=== PATIENT | male | born 1980 | race Caucasian/White ===

== ENCOUNTER 2021-06-22 19:07 | Emergency (ER) | payer OTHER, SELFPAY ==
--- NOTE | ~2021-06-22 | XR_ITS ---
[XR ribs RT 2V w CXR 2V ] INDICATION: Right lateral rib pain after fall TECHNIQUE: Frontal projection of the upper right ribs, frontal projection of the lower right ribs, ob lique projection of all the right ribs, frontal inspiratory chest x-ray for interpretation. FINDINGS: There is a right fourth rib fracture, possibly acute. There are healed right fifth and sixt h rib fractures posteriorly. There are no soft tissue abnormality seen. The lungs are clear. IMPRESSION: 1: Right fourth rib fracture, possibly acute. 2: Healed right fifth and sixth rib fractures. Reviewed, dictated and finalized at location A. FILL GAS TECHNICIAN
[2021-06-22 19:34] VITALS: BP 138/81; PULSE 72; RESP 20; TEMP 37.6; O2SAT 99
--- NOTE | 2021-06-22 20:04 | ED.FALL ---
HPI - Fall General Chief Complaint: Fall Stated Complaint: Fall Source: patient and RN notes reviewed Limitations: no limitations History of Present Illness HPI Narrative: The patient, a non-smoker/nondrinker, presents with right rib pain. Patient states he slipped from about a standing position while at [employer] striking his ribs on concrete ground, a couple hours ago. He complains of mild to moderate pain is worse with motion or deep breath , better at rest, located posterior right ribs. No fever, cough, shortness of breath, other injury, presyncope. Related Data Home Medications Medication Instructions Recorded Confirmed No Home Medications 06/22/21 06/22/21 Allergies Allergy/AdvReac Type Severity Reaction Status Date / Time No Known Allergies Allergy Verified 06/22/21 19:47 Review of Systems Review of Systems: General/Constitutional: No weight loss,fever Eyes: N0: Redness,discharge Ears/Nose/Throat: No: Epistaxis,ear discharge Respiratory: Denies: Hemoptysis Gastrointestinal: No Vomiting, Bleeding-rectal Skin: No Lumps, eruption Neurologic: No Focal Weakness,Sz Hematologic: Denies: Petechiae/Purpura Psychiatric: No: Suicida ideationl All Other Systems: Reviewed and Negative PMFSH Comments At time of signature, agree with nursing past medical, surgical, social and family history. There is no relevant family history pertinent to the presenting complaint Exam Narrative: General Appearance: Well appearing, mild pain/distress EYE: PERRLA, Conjunctiva clear Ears: External ear normal Nose: Normal nose Mouth/Throat: Normal appearing, Normal lips Neck: Supple Respiratory: Airway patent, No respiratory distress, tender right posterior ribs T3-5 Cardiovascular: RRR Abdomen: Soft, Non-tender, No massess, No organomegaly (no rebound/ surgical signs), Hyperactive bowel sounds Musculoskeletal: Full ROM Skin: Warm, Dry Neurological: A&O x3, CN II-X intact Psychiatric: Normal mood, Normal affect Course Course Emergency Course: Films visualized, interpreted by radiologist, agree, ABnormal see report Vital Signs Vital signs: Vital Signs Temperature 99.6 F 06/22/21 19:34 Pulse Rate 72 06/22/21 19:34 Respiratory Rate 20 06/22/21 19:34 Blood Pressure 138/81 06/22/21 19:34 Pulse Oximetry 99 06/22/21 19:34 Temperature 99.6 F 06/22/21 19:34 Pulse Rate 72 06/22/21 19:34 Respiratory Rate 20 06/22/21 19:34 Blood Pressure 138/81 06/22/21 19:34 Pulse Oximetry 99 06/22/21 19:34 Discharge Plan Discharge Clinical Impression: Right-sided chest pain Closed fracture of rib of right side Qualifiers: Encounter type: initial encounter Rib fracture type: single rib Qualified Code(s): S22.31XA - Fracture of one rib, right side, initial encounter for closed fracture Patient Disposition: Home, Self-Care Condition: Stable Instructions: Rib Fracture (ED), Hematoma (ED) Prescriptions: New acetaminophen-codeine 300-30 mg tablet 1 - 1.5 tablet PO HS PRN (Reason: pain) Qty: 10 RF: 0 tramadol 50 mg tablet 50 - 75 mg PO BID PRN (Reason: pain) Qty: 20 RF: 0 No Action No Home Medications RF: 0 Follow-up/Referrals: UNKNOWN,DOCTOR [Primary Care Provider] -
== END 2021-06-22 20:24 | disposition home or self-care (01) ==
PROVIDERS: Emergency Provider Emergency Medicine
DX: S22.31XA Fracture of one rib, right side, initial encounter for closed fracture (principal); W01.0XXA Fall on same level from slipping, tripping and stumbling without subsequent striking against object, initial encounter
CPT/HCPCS: 71046; 71100; 99203; G0463

== ENCOUNTER 2021-10-08 13:28 | Emergency (ER) | payer OTHER, SELFPAY ==
--- NOTE | 2021-10-08 13:36 | ED.NAVMDI ---
HPI - Nausea/Vomiting/Diarrhea General Chief complaint: Nausea/Vomiting/Diarrhea Stated complaint: vomiting Time Seen by Provider: 10/08/21 13:50 Source: patient Mode of arrival: ambulatory Limitations: no limitations History of Present Illness HPI Narrative: Mr. Martinez is a 41-year-old male patient presenting to the clinic today with complaints of vomiting x2 days. He reports he thinks it may be something that he is eaten, possibly some chicken. When asked about alcohol use he stated that he drank the night before approximately 1 pint of vodka. States that drinking alcohol has been a common occurrence for him however he is trying to decrease his alcohol intake and has gotten better with this however he had relapsed and drank the pint of vodka. Patient thinks that his vomiting is due to to something he ate. Reports he has not eaten or drink anything this morning because of the fear of vomiting. Had to call in to work for today. Denies any bowel changes or abdominal pain. Just reports that he is very hungry this morning. MD elicited complaint: nausea and vomiting Related Data Allergies Allergy/AdvReac Type Severity Reaction Status Date / Time No Known Allergies Allergy Verified 10/08/21 13:57 Review of Systems Review of Systems: Pertinent positives per HPI. Patient denies any fever, chills, rash, headache, visual changes, dizziness, cough, runny nose, sore throat, shortness of breath, chest pain, palpitations, diarrhea, constipation, abdominal pain, or any urinary issues. PMFSH Comments At the time of my signature, I reviewed and agree with the nursing past medical, surgical, social, and family history. There is no relevant family history pertinent to the patient complaint. Exam Narrative: General: Well-developed, well nourished, in no apparent distress. Cardio: Regular rate and rhythm, s1 and s2 normal, no murmur appreciated. Mouth: Oropharynx without lesions or masses, mucous membranes dry Resp: Clear to auscultation bilaterally, no rhonchi, rales, wheezing or rubs. Abdomen: Soft, pliable, bowel sounds present in all quadrants, non-tender to palpation, no organomegly, no CVAT tenderness. Course Course Emergency Course: Portions of this record may have been created with voice recognition software. Level of Care: Express Care Visit Vital Signs Vital signs: Vital Signs Temperature 36.4 C L 10/08/21 13:42 Pulse Rate 93 10/08/21 13:42 Respiratory Rate 16 10/08/21 13:42 Blood Pressure 148/96 H 10/08/21 13:42 Pulse Oximetry 98 10/08/21 13:42 Temperature 36.4 C L 10/08/21 13:42 Pulse Rate 93 10/08/21 13:42 Respiratory Rate 16 10/08/21 13:42 Blood Pressure 148/96 H 10/08/21 13:42 Pulse Oximetry 98 10/08/21 13:42 Vital signs reviewed MDM - Nausea/Vomiting/Diarrhea MDM Narrative Medical decision making narrative: UA obtained from patient and it was positive for 1+ ketone and specific gravity of greater than 1.030. Denies any abdominal pain. Discussed oral rehydration versus IV rehydration with patient and patient would like to receive IV fluids today. 1 L of lactated Ringer's IV fluids given in the clinic, I will send in a prescription of Zofran into the pharmacy for the patient. Counseled about alcohol use. We will have patient follow-up with PCP if symptoms persist. Patient reports feeling better after half a bag of lactated Ringer's infused. Patient decided that he no longer wants to stay in the clinic and would like to be discharged after receiving half a bag of fluids. INT removed intact and patient discharged with instructions Lab Data Labs: Urine Glucose Negative Reference Range: Negative Urine Bilirubin Negative Reference Range: Negative Urine Ketone 1+ Reference Range: Negati
[2021-10-08 13:42] VITALS: BP 148/96; PULSE 93; RESP 16; TEMP 36.4; O2SAT 98
[2021-10-08] MEDS: LACTATED RINGERS 1,000 ML 999 ML IV CONT (14:50)
--- NOTE | 2021-10-08 15:21 | PC.NURSE ---
Repositioned pt arm for IV to drip. Will continue to monitor. Call light in reach, no further complaints at this time.
--- NOTE | 2021-10-08 16:43 | PC.NURSE ---
1553- Pt playing on phone. Dressing dry, intact, and occlusive. IV patent, fluids dripping slowly, repositioned pt arm to drip faster . Will continue to monitor.
--- NOTE | 2021-10-08 16:45 | PC.NURSE ---
1625- Pt lying on side. Lights dimmed and pillow given for comfort. Dressing dry, intact and occlusive, iv patent. Pt denies pain. Pressure applied to IV bag. Will continue to monitor.
== END 2021-10-08 17:06 | disposition home or self-care (01) ==
PROVIDERS: Emergency Provider Nurse Practitioner Family
DX: R11.2 Nausea with vomiting, unspecified (principal)
CPT/HCPCS: 81003; 96360; 96361; 99213; G0463; J7120

== ENCOUNTER 2024-09-22 06:19 | Emergency (ER) | payer OTHER, SELFPAY ==
[2024-09-22] VITALS (8 sets, daily range): BP systolic 126–165; BP diastolic 77–103; PULSE 82–113; RESP 15–22; TEMP 36.8–36.9; O2SAT 97–100
--- NOTE | ~2024-09-22 | US_ITS ---
EXAMINATION: US right upper quadrant DATE: 09/22/2024 11:26 INDICATION: Nausea and vomiting TECHNIQUE: Multiple grayscale and Doppler ultrasound images of the abdomen were obtained. COMPARISON: None FINDINGS: The pancreatic head and body are normal in appearance. The pancreatic tail is not visualized. The vi sualized proximal inferior vena cava is normal. Liver has normal contour, with a smooth surface. Ther e is increased parenchymal echogenicity and coarsened echotexture consistent with diffuse hepatic cookie atosis. No liver lesion identified. No intrahepatic biliary duct dilation suspected. Portal venous f low was seen in the hepatopetal, normal direction and has normal Doppler waveform. The gallbladder is normal in appearance. There is no cholelithiasis. The common bile duct measures 4 mm, which is norm al. Sonographic Strong sign was reported as negative by the food safety technician. Visualized right kidney demo nstrates normal contour and echogenicity with no hydronephrosis. IMPRESSION: 1. Diffuse hepatic steatosis. Otherwise unremarkable right upper quadrant ultrasound. Reviewed, dictated and finalized at location B. [facility] IMPRESSION: 1. Diffuse hepatic steatosis. Otherwise unremarkable right upper quadrant ultra sound.
--- OUTSIDE RECORDS SUMMARY | 2024-09-22 06:21 | XMS_ITS | Referral Summary ---
Author Organization [facility] Address [address] [place] [address] Care Team Providers Care Coordinator Skill Training Program Name Role Phone Kenneth Lr Primary Care Provider Source Comments [facility],non-owned Affiliates and Associated Physician Practices is amultiple site organization consisting of ambulatory clinics and hospital sitesin [place], [place], [place] and [place]. This disclosure is being madepursuant to the Care Everywhere program and may not contain all information available regarding this patient. Last updated 18.[facility] Allergies No known active allergies Medications * Be aware that medications may not be up to date on this document. Alwaysverify current medications with the patient. Medication Sig Dispensed Refills Start Date End Date Status ondansetron, disintegrating, (Zofran ODT) 4 MG tabletIndications:Na usea and Vomiting Take 1 (one) tablet by mouth every 6 hours as needed for Nausea/Vomiting Allow tablet to dissolve on the tongue Reasons: Nausea and Vomiting 20 tablet 10/19/2023 Active pantoprazole EC (Protonix) 40 MG tablet Take 1 (one) tablet by mouth once daily 30 tablet 1 10/19/2023 Active Active Problems Problem Noted Date Diagnosed Date Abdominal pain, generalized 10/18/2023 Metabolic acidosis 10/18/2023 Alcohol use 10/18/2023 Immunizations Name Administration Dates Next Due TDAP (7yrs+) 05/19/2022 Social History Tobacco Use Types Packs/Day Years Used Date Smoking Tobacco: Never Smokeless Tobacco: Never Tobacco Cessation:Counseling Given: Not Answered Alcohol Use Standard Drinks/Week Comments Never 0 (1 standard drink = 0.6 oz pur e alcohol) Sex and Gender Information Value Date Recorded Sex Assigned at Male 05/19/2022 4:43 AM CDT Gender Identity Male 05/19/2022 4:43 AM CDT Sexual Orientation Not on file Last Filed Vital Signs Vital Sign Reading Time Taken Comments Blood Pressure 147/86 10/19/2023 11:47 AM CDT Pulse 78 10/19/2023 11:47 AM CDT Temperature 36.7 C (98 F) 10/19/2023 11:47 AM CDT Respiratory Rate 18 10/19/2023 11:47 AM CDT Oxygen Saturation 100% 10/19/2023 11:47 AM CDT Inhaled Oxygen Concentration - - Weight 79.4 kg (175 lb) 10/19/2023 6:40 AM CDT Height 182.9 cm (6') 10/19/2023 6:40 AM CDT Body Mass Index 23.73 10/19/2023 6:40 AM CDT Plan of Treatment Not on file Advance Directives * Full Code (Latest Code Status on File) Date Activated Date Inactivated Comments 10/18/2023 10:51 PM 10/19/2023 4:25 PM Care Teams Coordinator Skill Training Program Relationship Specialty Start Date End Date Kenneth Lr DO [address] [place] [id number] PCP - General Emergency Medicine 12/04/22
--- OUTSIDE RECORDS SUMMARY | 2024-09-22 06:21 | XMS_ITS | Clinical Summary ---
Author Organization [facility] Address [address] [place] [address] Care Team Providers Care Cone [facility] Name Role Phone Referral, Self Primary Care Provider Gold John MD Unavailable [phone] Allergies No known active allergies Medications buPROPion XL (WELLBUTRIN XL) 150 mg 24 hr tablet Take 1 tablet (150 mg total) by mouth every morning 90 tablet 4 07/11/2022 Active amitriptyline (ELAVIL) 25 mg tablet Take 1 tablet (25 mg total) by mouth nightly 90 tablet 4 08/29/2022 Active Hospital, Clinic, or Other Facility Administered Medication Ordered Dose Route Frequency Start Date End Date Status naltrexone microspheres (VIVITROL) intramuscular injection 380 mgIndications:Alcohol withdrawal syndrome with complication (HCC) 380 mg IM Every 30 days 08/29/2022 Act ammy Active Problems Problem Noted Date Diagnosed Date Attention deficit hyperactiv ity disorder (ADHD), predominantly inattentive type 09/23/2022 Assessment & Plan (09/23/2022 4:23 PM TRAVERSE ROD ASSEMBLER): Stable, not well controlled; diagnosed in childhood, but never treated Will continue to monitor and discuss medical treatments available as patient becomes more stable Start bupropion 150 mg daily PTSD (post-traumatic stress disorder) 09/03/2022 Assessment & Plan (09/23/2022 4:22 PM TRAVERSE ROD ASSEMBLER): Continues to have significant anxiety; will continue to monitor closely, continue Librium p.r.n.; adjust to other medication has available Assessment & Plan (09/03/2022 2:27 PM TRAVERSE ROD ASSEMBLER): Continue bupropion 150 mg daily Will start amitriptyline 25 mg nightly to help with insomnia Alcohol withdrawal syndrome with complication Assessment & Plan (09/23/2022 4:22 PM TRAVERSE ROD ASSEMBLER): Stable, well controlled; improving, completed medical stabilization, received Vivitrol; 15 Fredrick's last drink Taking Librium at night which helps with overall anxiety Will continue Librium for now,; look forward towards ways to decrease medication needs given side effects Assessment & Plan (09/03/2022 2:27 PM TRAVERSE ROD ASSEMBLER): Generally improving, 2 episodes of drinking since last visit; only 1 was large binge Doing well with current medication, improves cravings, as well as decreases modify alcohol during binges Continue Vivitrol injection monthly Assessment & Plan (06/29/2022 10:50 PM TRAVERSE ROD ASSEMBLER): Started on CIWA protocol with Librium. Continue folate and thiamine supplementation Replete electrolytes as needed. Seizure precautions. Fall precautions. Regular diet. Symptomatic treatment for withdrawal symptoms. Supportive care. Warm hand of team following. Anemia 06/29/2022 Assessment & Plan (06/29/2022 10:49 PM TRAVERSE ROD ASSEMBLER): Suspect secondary to alcohol abuse. 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 Monitor. Bleeding precautions. Finger injury, initial encounter 06/04/2021 Immunizations Immunization Administration Dates Next Due Tdap 05/19/2022,02/22/2020 Social History Tobacco Use Types Packs/Day Years Used Date Smoking Tobacco: Never Tobacco Cessation:Counseling Given: Not Answered AUDIT-C Answer Date Recorded Q1: How often do you have a drink containing alc ohol? Never 08/29/2022 Average Number of Drinks Not on file 023 Frequency of Binge Drinking Not on file 08/2022 PHQ-2 Answer Date Recorded PHQ-2 Total Score (If total score is 3 or more points, staff should administer the PHQ-9) 0 08/29/2022 Personal Safety Answer Date Recorded Getting School Help Needed Not on file 08/04 Sex and Gender Information Value Date Recorded Sex Assigned at Not on file Legal Sex Male 9:51 AM CDT Gender Identity Not on file Sexual Orientation Not on file Obstetrics History Last Filed Vital Signs Vital Sign Reading Time Taken Comments Blood Pressure 103/64 08/29/2022 11:36 AM TRAVERSE ROD ASSEMBLER Pulse 77 08/29/2022 11:36 AM TRAVERSE ROD ASSEMBLER Temperature 36.5 C (97.7 F) 08/29/2022 11:36 AM TRAVERSE ROD ASSEMBLER Respiratory Rate 16 08/29/2022 11:36 AM TRAVERSE ROD ASSEMBLER Oxygen Saturation 99% 08/29/2022 11:36 AM TRAVERSE ROD ASSEMBLER Inhaled Oxygen Concentration - - Weight 85.3 kg (188 lb) 08/29/2022 11:36 AM TRAVERSE ROD ASSEMBLER Height 182.9 cm (6') 08/29/2022 11:36 AM TRAVERSE ROD ASSEMBLER Body Mass Index 25.5 08/29/2022 11:36 AM TRAVERSE ROD ASSEMBLER Plan of Treatment Health Maintenance Due Date Last Done Comments Hepatitis C Screening 1980 Varicella Vaccines (1 of 2 - 13+ 2-dose series) 1993 Hepatitis B Screening 1998 Regular Well Visit/Exam 18-64 1998 Depression Screening 08/29/2023 08/29/2022 Covid-19 Vaccine (3 - 2023-2 5 season) 2024 08/11/2021, 07/18/2021 Influenza Vaccine (#1) 2024 DTaP/Tdap/Td Vaccine (3 - Td or Tdap) 05/19/2032 05/19/2022, 02/22/2020 HPV Vaccines Aged Out No longer eligi ble based on patient's age to complete this topic Pneumococcal vaccine <65 Aged Out No longer eligible based on patient's age to complete this topic Insurance [facility] Advance Directives For more information, please contact: [phone] * Full Code (Latest Code Status on File) Date Activated Date Inactivated Comments 06/29/2022 2:07 PM 07/02/2022 2:08 PM Care Teams Cone Winder Relationship Specialty Start Date End Date Referral, Self PCP - General 05/01/21 Gold Winston MD Consulting Physician Family Medicine 07/01/22
--- OUTSIDE RECORDS SUMMARY | 2024-09-22 06:21 | XMS_ITS | Clinical Summary ---
Author Organization [facility] ??? Address [address] [place] [address] Care Team Providers Care Key Person Name Role Phone Kenneth Lr Primary Care Provider Source Comments [facility] ???,non-owned Affiliates and Associated Physician Practices is amultiple site organization consisting of ambulatory clinics and hospital sitesin [place], [place], [place] and [place]. This disclosure is being madepursuant to the Care Everywhere program and may not contain all information available regarding this patient. Last updated 18.[facility] ??? Allergies No known active allergies Medications * [...] 10/19/2023 6:40 AM CDT Plan of Treatment Health Maintenance Due Date Last Done Comments LIPID TESTING 1980 HIV SCREENING 1995 HEPATITIS C SCREENING 06/08/1998 HEPATITIS B VACCINE (1 of 3 - 19+ 3-dose series) 1999 COVID-19 VACCINE (2023-2 5 season) 2024 INFLUENZA VACCINE (#1) 2024 DEPRESSION SCREENING 07/28/2024 ZOSTER VACCINE (1 of 2) 2030 DTAP/TDAP/TD VACCINES (2 - T d or Tdap) 05/19/2032 05/19/2022 HIB VACCINE Aged Out No longer eligi ble based on patient's age to complete this topic HPV VACCINE Aged Out No longer eligi ble based on patient's age to complete this topic MENINGOCOCCAL (Group B) VACCINE Aged Out No longer eligible based on patient's age to complete this topic MENINGOCOCCAL VACCINE Aged Out No timo tima eligible based on patient's age to complete this topic PNEUMOCOCCAL VACCINE Aged Out No long er eligible based on patient's age to complete this topic Advance Directives * Full Code (Latest Code Status on File) Date Activated Date Inactivated Comments 10/18/2023 10:51 PM 10/19/2023 4:25 PM Care Teams Key Person Relationship Specialty Start Date End Date Kenneth Lr DO [address] [place] [id number] PCP - General Emergency Medicine 12/04/22
--- OUTSIDE RECORDS SUMMARY | 2024-09-22 06:21 | XMS_ITS | Patient Health Summary ---
Author Organization [facility] Address [address] [address] Care Team Providers Care Rocket Assembly Operator Name Role Phone Kenneth Lr DO Primary Care Provider Note from [facility],non-owned Affiliates and Associated Physician Practices is amultiple site organization consisting of ambulatory clinics and hospital sitesin [place], [place], [place] and [place]. This disclosure is being madepursuant to the Care Everywhere program and may not contain all information available regarding this patient. Last updated 18.[facility] Allergies No known active allergies Medications * Be aware that medications may not be up to date on this document. Alwaysverify current medications with the patient. * ondansetron, disintegrating, (Zofran ODT) 4 MG tablet(Started 10/19/2023) Take 1 (one) tablet by mouth every 6 hours as needed for Nausea/Vomiting Allow tablet to dissolve on the tongue Reasons: Nausea and Vomiting * pantoprazole EC (Protonix) 40 MG tablet(Started 10/19/2023) Take 1 (one) tablet by mouth once daily 1 refill by 10/18/2024 Active Problems Problem Noted Date Diagnosed Date Abdominal pain, generalized 10/18/2023 Metabolic acidosis 10/18/2023 Alcohol use 10/18/2023 Immunizations * TDAP (7yrs+)(Given 05/19/2022) Social History Tobacco Use Types Packs/Day Years [...] Mass Index 23.73 10/19/2023 6:40 AM CDT Procedures * CARDIAC EKG ORDER(Performed 10/23/2023) * CARDIAC EKG ORDER(Performed 10/20/2023) * HELICOBACTER PYLORI ANTIGEN FECES(Performed 10/19/2023) Performed for Abdominal pain, generalized * MAGNESIUM BLOOD(Performed 10/19/2023) Performed for Starvation ketoacidosis * BASIC METABOLIC PANEL (CALCIUM TOTAL)(Performed 10/19/2023) Performed for Starvation ketoacidosis * PHOSPHORUS BLOOD(Performed 10/19/2023) Performed for Starvation ketoacidosis * GLUCOSE - POINT OF CARE(Performed 10/19/2023) * GLUCOSE - POINT OF CARE(Performed 10/19/2023) * MAGNESIUM BLOOD(Performed 10/19/2023) Performed for Starvation ketoacidosis * BASIC METABOLIC PANEL (CALCIUM TOTAL)(Performed 10/19/2023) Performed for Starvation ketoacidosis * PHOSPHORUS BLOOD(Performed 10/19/2023) Performed for Starvation ketoacidosis * HEMOGLOBIN A1C(Performed 10/19/2023) Performed for Starvation ketoacidosis * CBC W/O DIFFERENTIAL(Performed 10/19/2023) Performed for Starvation ketoacidosis * GLUCOSE - POINT OF CARE(Performed 10/18/2023) * MAGNESIUM BLOOD(Performed 10/18/2023) Performed for Starvation ketoacidosis * BASIC METABOLIC PANEL (CALCIUM TOTAL)(Performed 10/18/2023) Performed for Starvation ketoacidosis * PHOSPHORUS BLOOD(Performed 10/18/2023) Performed for Starvation ketoacidosis * HGB HCT PANEL(Performed 10/18/2023) * GLUCOSE - POINT OF CARE(Performed 10/18/2023) * LACTIC ACID BLOOD REFLEX TO REPEAT(Performed 10/18/2023) * LACTIC ACID BLOOD(Performed 10/18/2023) * CT ABDOMEN PELVIS W CONTRAST(Performed 10/18/2023) Performed for Abdominal pain, generalized * BLOOD GASES CODY(Performed 10/18/2023) * LACTIC ACID REPEAT REFLEX(Performed 10/18/2023) * ALCOHOL ETHYL BLOOD(Performed 10/18/2023) * LACTIC ACID BLOOD REFLEX TO REPEAT(Performed 10/18/2023) * LIPASE BLOOD(Performed 10/18/2023) * COMPREHENSIVE METABOLIC PANEL(Performed 10/18/2023) * CBC W AUTO DIFFERENTIAL(Performed 10/18/2023) * LIPASE BLOOD(Performed 12/04/2022) * COMPREHENSIVE METABOLIC PANEL(Performed 12/04/2022) * CBC W AUTO DIFFERENTIAL(Performed 12/04/2022) * XR CHEST 1VW(Performed 05/19/2022) Performed for Laceration of left side of back, initial encounter * URINALYSIS W/MICROSCOPIC NO CULTURE(Performed 05/19/2022) * URINE DRUG SCREEN IMMUNOASSAY(Performed 05/19/2022) * BLOOD TYPE VERIFICATION(Performed 05/19/2022) * CT CHEST ABDOMEN PELVIS W CONT(Performed 05/19/2022) Performed for Trauma * XR CHEST 1VW PORTABLE(Performed 05/19/2022) Performed for Trauma * TYPE + SCREEN PANEL(Performed 05/19/2022) * DIFFERENTIAL MANUAL(Performed 05/19/2022) * PTT [facility](Performed 05/19/2022) * PT-INR [facility](Performed 05/19/2022) * CBC W AUTO DIFFERENTIAL(Performed 05/19/2022) * BASIC METABOLIC PANEL (CALCIUM TOTAL)(Performed 05/19/2022) * ALCOHOL ETHYL BLOOD(Performed 05/19/2022) Results * CARDIAC EKG ORDER (10/23/2023 3:50 PM CDT) Only the most recent of2 resultswithin the time period is included. Narrative 10/23/2023 3:50 PM CDT Ordered by an unspecified provider. Scanned Document CARDIAC SERVICES ORD ERABLES * HELICOBACTER PYLORI ANTIGEN FECES (10/19/2023 2:26 PM CDT) Helicobacter pylori Antigen Stool Negative Negative 10/22/2023 7:11 AM CDT [facility] ([facility]) Stool STOOL SPECIMEN / Unknown Collection / Unknown 10/19/2023 2:26 PM CDT 10/19/2023 2:29 PM CDT Narrative [facility] ([facility]) - 10/22/2023 7:11 AM CDT Performed at: [facility] - [facility] [address], [place] [id number] Hand Shaper: Evangelista Jackson PhD, Phone: [phone] Georgia Ang MD LAB - MICRO BIOLOGY ORDERABLES [facility] [address] [place] [address] * (ABNORMAL) BASIC METABOLIC PANEL (CALCIUM TOTAL) (10/19/2023 12:32 PM CDT) Only the most recent of4 resultswithin the time period is included. Glucose 120(H) 70 - 105 mg/dL 10/19/2023 12:52 PM CDT [facility] Sodium 136 136 - 145 mmol/L 10/19/2023 12:52 PM CDT [facility] Potassium 3.9 3.5 - 5.1 mmol/L 10/19/2023 12:52 PM CDT [facility] Chloride 100 98 - 107 mmol/L 10/19/2023 12:52 PM CDT [facility] CO2 25 22 - 29 mmol/L 10/19/2023 12:52 PM CDT [facility] Calcium 8.1(L) 8.4 - 10.4 mg/dL 10/19/2023 12:52 PM CDT [facility] Anion Gap 11 6 - 16 mmol/L 10/19/2023 12:52 PM CDT [facility] BUN 6 5.3 - 18.7 mg/dL 10/19/2023 12:52 PM CDT [facility] Creatinine 0.98 0.72 - 1.25 mg/dL 10/19/2023 12:52 PM CDT [facility] eGFR by CKD-EPI >90 >=90 mL/min/1.7 3 m2 10/19/2023 12:52 PM CDT [facility] Blood BLOOD SPECIMEN / Unknown Lab Venipuncture / Unknown 10/19/2023 12:32 PM CDT 10/19/2023 12:33 PM CDT Gennarorosalina Vasquez DO LAB - CHEMISTRY ORDCrow MCINTYRE Performing Organization Address City/[facility]/ZIP Co de Phone Number [facility] [address] [place] [address] * (ABNORMAL) PHOSPHORUS BLOOD (10/19/2023 12:32 PM CDT) Only the most recent of3 resultswithin the time period is included. Phosphorus 1.3(L) 2.3 - 4.7 mg/dL 10/19/2023 12:55 PM CDT [facility] Blood BLOOD SPECIMEN / Unknown Lab Venipuncture / Unknown 10/19/2023 12:32 PM CDT 10/19/2023 12:33 PM CDT Gennaro Vasquez DO LAB - CHEMISTRY OFE MCINTYRE Performing Organization Address [facility]/ZIP Co de Phone Number [facility] [address] [place] [address] * MAGNESIUM BLOOD (10/19/2023 12:32 PM CDT) Only the most recent of3 resultswithin the time period is included. Magnesium 2.2 1.6 - 2.6 mg/dL 10/19/2023 12:52 PM CDT [facility] Blood BLOOD SPECIMEN / Unknown Lab Venipuncture / Unknown 10/19/2023 12:32 PM CDT 10/19/2023 12:33 PM CDT Gennarorosalina Vasquez DO LAB - CHEMISTRY OFE MCINTYRE [facility] [address] [place] [address] * (ABNORMAL) GLUCOSE - POINT OF CARE (10/19/2023 11:55 AM CDT) Only the most recent of4 resultswithin the time period is included. [facility] Glucose WB/POC 153(H) 70 - 106 mg/dL 10/19/2023 12:04 PM CDT [facility] Specimen Type Arterial 10/19/2023 12:04 PM CDT [facility] Blood BLOOD SPECIMEN / Unknown 10/19/2023 11:55 AM CDT 10/19/2023 12:04 PM CDT Georgia Ang MD LAB - POINT OF CARE ORDERABLES [facility] [address] [place] [address] * HEMOGLOBIN A1C (10/19/2023 5:46 AM CDT) [facility] Hemoglobin A1c 5.1 <5.7 % 10/19/2023 6:04 AM CDT [facility] Estimated Average Glucose 100 mg/dL 10/19/2023 6:04 AM CDT [facility] Blood BLOOD SPECIMEN / Unknown Lab Venipuncture / Unknown 10/19/2023 5:46 AM CDT 10/19/2023 5:49 AM CDT [facility] - 10/19/2023 6:04 AM CDT HbA1c Interpretation: Normal: < 5.7% Pre-diabetes: 5.7-6.4% Diabetes: Equal to or greater than 6.5% Test results diagnostic of diabetes should be repeated for confirmation. Treatment target values recommended by ADA and other clinical organizations should be used to evaluate metabolic control in patients. This test should not replace glucose testing for patients with Type 1 diabetes, pediatric patients, or women. Falsely low HbA1c results may be observed in patients with clinical conditions that shorten erythrocyte life span or decrease mean erythrocyte age such as the presence of unstable hemoglobin variants, elevated hemoglobin F level or other causes of hemolytic anemia. HbA1c may not accurately reflect glycemic control when clinical conditions that affect erythrocyte survival are present. Severe Iron deficiency anemia may yield falsely high results. Hemoglobin A1c assay should not be used to diagnose or monitor diabetes in patients with malignancy, recent blood transfusion, chronic kidney or liver disease. This method may yield falsely low results when hemoglobin (HbF) exceeds 5% in the specimen. The Hayes Alinity assay for the measurement of HbA1c is a National Glycohemoglobin Standardization Program (NGSP) certified method. Gennaro Vasquez DO LAB - CHEMISTRY OFE MCINTYRE [facility] Organization Address City/State/ZIP Co de Phone Number [facility] [address] [place] [address] * (ABNORMAL) CBC W/O DIFFERENTIAL (10/19/2023 5:46 AM CDT) [facility] WBC 5.2 4.0 - 10.7 x10E9/L 10/19/2023 5:54 AM CDT [facility] RBC Count 3.78(L) 4.30 - 5.80 x10E12/L 10/19/2023 5:54 AM CDT [facility] Hemoglobin 12.2(L) 13.3 - 17.5 g/dL 10/19/2023 5:54 AM CDT [facility] Hematocrit 34.6(L) 38.7 - 51.1 % 10/19/2023 5:54 AM CDT [facility] MCV 91.5 80.0 - 98.0 fL 10/19/2023 5:54 AM CDT [facility] MCH 32.3 26.7 - 33.6 pg 10/19/2023 5:54 AM CDT [facility] MCHC 35.3 31.7 - 36.3 g/dL 10/19/2023 5:54 AM CDT [facility] RDW-CV 12.5 11.3 - 14.8 % 10/19/2023 5:54 AM CDT [facility] Platelet Count 130(L) 150 - 420 x10E9/L 10/19/2023 5:54 AM CDT [facility] MPV 9.1 7.8 - 11.4 fL 10/19/2023 5:54 AM CDT [facility] Blood BLOOD SPECIMEN / Unknown Lab Venipuncture / Unknown 10/19/2023 5:46 AM CDT 10/19/2023 5:49 AM CDT Gennaro Vasquez DO LAB - HEMATOLOGY ORD ERABLES Performing Organization Address City/[facility]/ZIP Co de Phone Number [facility] [address] [place] [address] * (ABNORMAL) HGB HCT PANEL (10/18/2023 10:21 PM CDT) Hemoglobin 12.0(L) 13.3 - 17.5 g/dL 10/18/2023 10:29 PM CDT [facility] Hematocrit 34.3(L) 38.7 - 51.1 % 10/18/2023 10:29 PM CDT [facility] Blood BLOOD SPECIMEN / Unknown Venipuncture / Unknown 10/18/2023 10:21 PM CDT 10/18/2023 10:23 PM CDT Grace Morfin PA-C LAB - HEMATOLOGY O RDERABLES Performing Organization Address [facility] Co de Phone Number [facility] [address] [place] [address] * LACTIC ACID BLOOD REFLEX TO REPEAT (10/18/2023 9:33 PM CDT) Only the most recent of2 resultswithin the time period is included. Lactic Acid 1.1 <=2 mmol/L 10/18/2023 9:56 PM CDT [facility] Blood BLOOD SPECIMEN / Unknown Venipuncture / Unknown 10/18/2023 9:33 PM CDT 10/18/2023 9:40 PM CDT Kim Michael MD LAB - CHEMISTRY OFE MCINTYRE Performing Organization Address City/[facility]/ZIP Co de Phone Number [facility] [address] [place] [address] * LACTIC ACID BLOOD (10/18/2023 9:04 PM CDT) Lactic Acid 1.0 <=2 mmol/L 10/18/2023 9:17 PM CDT [facility] Blood BLOOD SPECIMEN / Unknown Venipuncture / Unknown 10/18/2023 9:04 PM CDT 10/18/2023 9:07 PM CDT Grace Morfin PA-C LAB - CHEMISTRY OR DERABLES [facility] [address] [place] [address] * CT ABDOMEN PELVIS W CONTRAST (10/18/2023 7:38 PM CDT) Anatomical Region Laterality Modality Abdomen, Pelvis Computed Tomogra phy 10/19/2023 6:20 AM CDT Impressions 10/19/2023 6:23 AM CDT IMPRESSION: No acute abdominal or pelvic abnormality to explain the patient's symptoms. . > Interpreting Provider: Javi Cordova MD on 10/19/2023 6:23 AM Narrative 10/19/2023 6:23 AM CDT PROCEDURE: CT ABDOMEN PELVIS W CONTRAST COMPARISON: No relevant available comparison. CLINICAL INFORMATION (none relevant/not provided if blank): Indication: R10.84: Generalized abdominal pain Additional History: TECHNIQUE:Axial CT images were obtained through the abdomen and pelvis with intravenous contrast. Oral contrast was not administered. [facility] CQMS #[id number]: [facility]: CT dose reduction technique was used, including Automated Exposure Control. CONTRAST (specific details in PSYCHIATRIC EMR): IOPAMIDOL 76 % IV SOLN:80 mL FINDINGS: Lung bases: The visualized lung bases are clear. Liver: There is diffuse fatty infiltration of the liver without focal lesion. Gallbladder/Biliary Tree: Normal. Pancreas: Normal. Spleen: Normal. Adrenal glands: Normal. Kidneys: Normal. Retroperitoneum: Normal. Bowel: There is no bowel obstruction or acute inflammatory change. A normal appendix is visualized. There is no significant ascites or free air. Pelvis: Normal. Abdominal wall & bone: Normal. Procedure Note Javi Cordova MD - 10/19/2023 PROCEDURE: CT ABDOMEN PELVIS W CONTRAST COMPARISON: No relevant available comparison. CLINICAL INFORMATION (none relevant/not provided if blank): Indication: R10.84: Generalized abdominal pain Additional History: TECHNIQUE:Axial CT images were obtained through the abdomen and pelviswith intravenous contrast. Oral contrast was not administered. [facility] CQMS#[id number]: All CT scans at [facility]: CT dose reduction technique was used, including Automated Exposure Control. CONTRAST (specific details in PSYCHIATRIC EMR): IOPAMIDOL 76 % IV SOLN:80 mL FINDINGS: Lung bases: The visualized lung bases are clear. Liver: There is diffuse fatty infiltration of the liver without focal lesion. Gallbladder/Biliary Tree: Normal. Pancreas: Normal. Spleen: Normal. Adrenal glands: Normal. Kidneys: Normal. Retroperitoneum: Normal. Bowel: There is no bowel obstruction or acute inflammatory change. A normal appendix is visualized. There is no significant ascites or freeair. Pelvis: Normal. Abdominal wall & bone: Normal. IMPRESSION: No acute abdominal or pelvic abnormality to explain the patient'ssymptoms. . > Interpreting Provider: Javi Cordova MD on 10/19/2023 6:23 AM Grace Morfin PA-C CT ORDERABLES * (ABNORMAL) BLOOD GASES CODY (10/18/2023 7:14 PM CDT) pH Venous 7.39 7.32 - 7.42 pH 10/18/2023 7:32 PM CDT [facility] pCO2 Venous 38(L) 40 - 50 mmHg 10/18/2023 7:32 PM CDT [facility] pO2 Venous 39 35 - 40 mmHg 10/18/2023 7:32 PM CDT [facility] HCO3 Venous 23.0(L) 24 - 26 mmol/L 10/18/2023 7:32 PM CDT [facility] Base Excess Venous -1.7 -2.0 - 2.0 mmol/L 10/18/2023 7:32 PM CDT [facility] O2 Saturation Venous 64(L) >=70 % 10/18/2023 7:32 PM CDT [facility] Miguel's Test N/A 10/18/2023 7:32 PM CDT [facility] Sample Site Venous Line 10/18/2023 7:32 PM CDT [facility] O2 Device Room Air 10/18/2023 7:32 PM CDT [facility] FI O2 21.0 % 10/18/2023 7:32 PM CDT [facility] Blood BLOOD SPECIMEN / Unknown 10/18/2023 7:14 PM CDT 10/18/2023 7:14 PM CDT Grace Morfin PA-C LAB - BLOOD GASES ORDERABLES Performing Organization Address City/[facility]/ZIP Co de Phone Number [facility] [address] [place], [place] [address] [phone] * LACTIC ACID REPEAT REFLEX (10/18/2023 6:39 PM CDT) Lactic Acid Repeat Reflex Order LACTIC ACID REPEAT HAS BEEN ORDERED 10/18/2023 9:00 PM CDT [facility] Blood BLOOD SPECIMEN / Unknown Venipuncture / Unknown 10/18/2023 6:39 PM CDT 10/18/2023 6:54 PM CDT Kim Michael MD LAB - CHEMISTRY ORDE MIGUELINA Performing Organization Address City/[facility]/ZIP Co de Phone Number [facility] [address] [place] [address] * (ABNORMAL) CBC W AUTO DIFFERENTIAL (10/18/2023 6:39 PM CDT) Only the most recent of3 resultswithin the time period is included. WBC 11.2(H) 4.0 - 10.7 x10E9/L 10/18/2023 6:48 PM CDT [facility] RBC Count 4.10(L) 4.30 - 5.80 x10E12/L 10/18/2023 6:48 PM CDT [facility] Hemoglobin 13.4 13.3 - 17.5 g/dL 10/18/2023 6:48 PM CDT [facility] Hematocrit 37.0(L) 38.7 - 51.1 % 10/18/2023 6:48 PM CDT [facility] MCV 90.2 80.0 - 98.0 fL 10/18/2023 6:48 PM CDT [facility] MCH 32.7 26.7 - 33.6 pg 10/18/2023 6:48 [facility] MCHC 36.2 31.7 - 36.3 g/dL 10/18/2023 6:48 PM [facility] RDW-CV 12.7 11.3 - 14.8 % 10/18/2023 6:48 PM [facility] Platelet Count 179 150 - 420 x10E9/L 10/18/2023 6:48 PM [facility] MPV 9.2 7.8 - 11.4 fL 10/18/2023 6:48 PM [facility] Neutrophil % 75.0(H) 41.0 - 74.0 % 10/18/2023 6:48 PM [facility] Lymphocyte % 19.8 17.0 - 47.0 % 10/18/2023 6:48 PM [facility] Monocyte % 4.0 3.0 - 11.0 % 10/18/2023 6:48 PM [facility] Eosinophil % 0.0 0.0 - 7.0 % 10/18/2023 6:48 PM [facility] Basophil % 0.8 0.0 - 1.6 % 10/18/2023 6:48 PM [facility] Immature Granulocytes % 0.4 0.0 - 1.0 % 10/18/2023 6:48 PM [facility] Neutrophil Absolute 8.37(H) 1.60 - 7.50 x10E9/L 10/18/2023 6:48 PM [facility] Lymphocyte Absolute 2.21 1.00 - 4.40 x10E9/L 10/18/2023 6:48 PM [facility] Monocyte Absolute 0.45 0.15 - 1.00 x10E9/L 10/18/2023 6:48 PM [facility] Eosinophil Absolute 0.00 0.00 - 0.60 x10E9/L 10/18/2023 6:48 PM [facility] Basophil Absolute 0.09 0.00 - 0.13 x10E9/L 10/18/2023 6:48 PM [facility] Blood BLOOD SPECIMEN / Unknown Venipuncture / Unknown 10/18/2023 6:39 PM CDT 10/18/2023 6:42 PM CDT Kim Michael MD LAB - HEMATOLOGY ORD ERABLES [facility] [address] [place] [address] * (ABNORMAL) COMPREHENSIVE METABOLIC PANEL (10/18/2023 6:39 PM CDT) Only the most recent of2 resultswithin the time period is included. [facility] Glucose 83 70 - 105 mg/dL 10/18/2023 6:59 PM CDT [facility] Sodium 137 136 - 145 mmol/L 10/18/2023 6:59 PM CDT [facility] Potassium 4.0 3.5 - 5.1 mmol/L 10/18/2023 6:59 PM CDT [facility] Chloride 99 98 - 107 mmol/L 10/18/2023 6:59 PM [facility] CO2 13(L) 22 - 29 mmol/L 10/18/2023 6:59 PM T [facility] Calcium 8.2(L) 8.4 - 10.4 mg/dL 10/18/2023 6:59 PM T [facility] Anion Gap 25(H) 6 - 16 mmol/L 10/18/2023 6:59 PM CDT [facility] BUN 17 5.3 - 18.7 mg/dL 10/18/2023 6:59 PM T [facility] Creatinine 0.90 0.72 - 1.25 mg/dL 10/18/2023 6:59 PM T [facility] Alkaline Phosphatase 74 40 - 150 U/L 10/18/2023 6:59 PM [facility] ALT 116(H) 0 - 55 U/L 10/18/2023 6:59 PM CDT [facility] AST 99(H) 5 - 34 U/L 10/18/2023 6:59 PM CDT [facility] Protein Total 7.2 6.4 - 8.3 gm/dL 10/18/2023 6:59 PM CDT [facility] Albumin 4.1 3.4 - 5.0 gm/dL 10/18/2023 6:59 PM [facility] Bilirubin Total 0.8 0.2 - 1.2 mg/dL 10/18/2023 6:59 PM CDT [facility] eGFR by CKD-EPI >90 >=90 mL/min/1.7 3 m2 10/18/2023 6:59 PM CDT [facility] Blood BLOOD SPECIMEN / Unknown Venipuncture / Unknown 10/18/2023 6:39 PM CDT 10/18/2023 6:42 PM CDT Kim Michael MD LAB - CHEMISTRY ORDCrow MCINTYRE Performing Organization Address [facility]/ZIP Co de Phone Number [facility] [address] [place] [address] * LIPASE BLOOD (10/18/2023 6:39 PM CDT) Only the most recent of2 resultswithin the time period is included. Lipase 53 <60 U/L 10/18/2023 6:58 PM CDT [facility] Blood BLOOD SPECIMEN / Unknown Venipuncture / Unknown 10/18/2023 6:39 PM CDT 10/18/2023 6:42 PM CDT Kim Michael MD LAB - CHEMISTRY ORDCrow MCINTYRE Performing Organization Address [facility]/ZIP Co de Phone Number [facility] [address] [place] [address] * ALCOHOL ETHYL BLOOD (10/18/2023 6:39 PM CDT) Only the most recent of2 resultswithin the time period is included. Ethanol <10.0 <10 mg/dL 10/18/2023 7:18 PM CDT [facility] Ethanol Calculated <0.010 <=0.100 gm/dL 10/18/2023 7:18 PM CDT [facility] Blood BLOOD SPECIMEN / Unknown Venipuncture / Unknown 10/18/2023 6:39 PM CDT 10/18/2023 6:42 PM CDT Narrative [facility] - 10/18/2023 7:18 PM CDT Ethanol Interp <10: None Detected Depression of CSN: >100 mg/dL Potentially Critical: >250 mg/dL Potentially Fatal >400 mg/dL Ethanol in the patient's blood will contribute to the osmolar gap. Ethanol's contribution to the osmolar gap can be estimated by dividing the concentration of ethanol in mg/dL by 4.6. This test is for clinical use only and does not equal a TRINA for legal purposes. Grace Mrofin PA-C LAB - CHEMISTRY OR DERABLES [facility] [address] [place] [address] * XR CHEST 1VW (05/19/2022 9:19 AM CDT) Anatomical Region Laterality Modality Chest Radiographic Mamie ging 05/19/2022 9:22 AM CDT Narrative 05/19/2022 9:38 PM CDT EXAMINATION: XR CHEST 1VW HISTORY: S21.212A: Laceration of left side of back, initial encounter COMPARISON: Chest x-ray from 05/19/2022 FINDINGS/IMPRESSION: Low lung volumes bilaterally. Trace bilateral pleural effusion cannot be excluded. There is no focal consolidation or pneumothorax. The cardiomediastinal silhouette is normal for portable technique. Multiple right rib fractures are seen, likely old. > Dictated by Zack Chandra MD (interventional radiology tech). Yared Calvillo MD have personally reviewed and interpreted this examination/study. > Interpreting Provider: Yared Schafer MD on 05/19/2022 9:38 PM Procedure Note Luz Schafer MD - 05/19/2022 EXAMINATION: XR CHEST 1VW HISTORY: S21.212A: Laceration of left side of back, initial encounter COMPARISON: Chest x-ray from 05/19/2022 FINDINGS/IMPRESSION: Low lung volumes bilaterally. Trace bilateral pleural effusion cannot be excluded. There is no focal consolidation or pneumothorax. The cardiomediastinal silhouette is normal for portable technique. Multiple right rib fractures are seen, likely old. > Dictated by Zack Chandra MD (interventional radiology tech). IYared MD have personally reviewed and interpreted this examination/study. > Interpreting Provider: Yared Schafer MD on 05/19/2022 9:38 PM Dagoberto Carrizales MD DIAGNOSTIC IMAGING O RDERABLES * (ABNORMAL) URINALYSIS W/MICROSCOPIC NO CULTURE (05/19/2022 6:21 AM CDT) Color UA Colorless(A ) Straw, Yellow 05/19/2022 12:18 PM [facility] Clarity UA Clear Clear 05/19/2022 12:18 PM [facility] Specific [place] UA 1.003(L) 1.005 - 1.030 05/19/2022 12:18 PM [facility] pH UA 6.0 5.0 - 8.0 pH 05/19/2022 12:18 PM [facility] Protein UA Negative Negative 05/19/2022 12:18 PM [facility] Glucose UA Negative Negative 05/19/2022 12:18 PM [facility] Ketone UA Negative Negative 05/19/2022 12:18 PM [facility] Bilirubin UA Negative Negative 05/19/2022 12:18 PM [facility] Blood UA Negative Negative 05/19/2022 12:18 PM [facility] Nitrite UA Negative Negative 05/19/2022 12:18 PM [facility] Leukocyte Esterase Negative Negative 05/19/2022 12:18 PM [facility] Urobilinogen UA Negative Negative mg/dL 05/19/2022 12:18 PM [facility] RBC UA 0-2 None Seen, 0-2, 3-5 /HPF 05/19/2022 12:18 PM [facility] Comment:This is an appended report. These results have been appended to a previously final verified report. WBC UA None Seen None Seen, 0-5 /HPF 05/19/2022 12:18 PM [facility] Comment:This is an appended report. These results have been appended to a previously final verified report. Squamous Epithelial Cells UA None Seen None Seen, 0-2, 3-5 /HPF 05/19/2022 12:18 PM CDT [facility] Comment:This is an appended report. These results have been appended to a previously final verified report. Urine URINE SPECIMEN OBTAINED BY CLEAN CATCH PROCEDURE / Unknown Collection / Unknown 05/19/2022 6:21 AM CDT 05/19/2022 6:30 AM CDT Narrative [facility] - 05/19/2022 12:18 PM CDT Javi James MD LAB - URINALYSIS ORD ERABLES [facility] [address] [place] [id number], [facility] [phone] * URINE DRUG SCREEN IMMUNOASSAY (05/19/2022 6:21 AM CDT) [facility] Amphetamines Screen Urine Negative Negative: < 1000 ng/mL 05/19/2022 6:50 AM [facility] Barbiturates Screen Urine Negative Negative: < 200 ng/mL 05/19/2022 6:50 AM [facility] Benzodiazepine Screen Urine Negative Negative: < 200 ng/mL 05/19/2022 6:50 AM [facility] Opiates Urine Negative Negative: < 300 ng/mL 05/19/2022 6:50 AM [facility] Cocaine Metabolites Urine Negative Negative: < 300 ng/mL 05/19/2022 6:50 AM [facility] Phencyclidine Screen Urine Negative Negative: < 25 ng/ml 05/19/2022 6:50 AM [facility] Cannabinoids Screen Urine Negative Negative: <50 ng/mL 05/19/2022 6:50 AM [facility] Methadone Screen Urine Negative Negative: < 300 ng/mL 05/19/2022 6:50 AM [facility] Fentanyl Screen Urine Negative Negative: <1.5 ng/mL 05/19/2022 6:50 AM [facility] Urine URINE / Unknown Collection / Unknown 05/19/2022 6:21 AM CDT 05/19/2022 6:30 AM CDT Narrative [facility] - 05/19/2022 6:50 AM CDT The Urine Toxicology Screening Panel does not screen for Propoxyphene, Meprobamate, Carisoprodol, Trazodone, wano-lmw-svrisrv medications and/or volatiles (Acetone, Isopropanol, Methanol or Ethylene Glycol). Ethanol, Salicylate, Acetaminophen, Tricyclic Antidepressants and several therapeutic drugs may be individually assayed in serum or plasma specimen. Toxicology testing by the [facility] is an aid to medical diagnosis and treatment of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
--- OUTSIDE RECORDS SUMMARY | 2024-09-22 06:21 | XMS_ITS | Referral Summary ---
Author Organization [facility] [place] Address [address] [place] [address] Care Team Providers Care Clinical Technician Name Role Phone Referral, Self Primary Care Provider Gold John MD Unavailable [phone] Allergies No known active allergies Medications buPROPion [...] 09/23/2022 Assessment & Plan (09/23/2022 4:23 PM [employer] ATT[employer]): Stable, not well controlled; diagnosed in childhood, but never treated Will continue to monitor and discuss medical treatments available as patient becomes more stable Start bupropion 150 mg daily PTSD (post-traumatic stress disorder) 09/03/2022 Assessment & Plan (09/23/2022 4:22 PM [employer] ELASTIC ATTACHER): Continues to have significant anxiety; will continue to monitor closely, continue Librium p.r.n.; adjust to other medication has available Assessment & Plan (09/03/2022 2:27 PM [employer] ELASTIC ATTACHER): Continue bupropion 150 mg daily Will start amitriptyline 25 mg nightly to help with insomnia Alcohol withdrawal syndrome with complication Assessment & Plan (09/23/2022 4:22 PM [employer] ELASTIC ATTACHER): Stable, well controlled; improving, completed medical stabilization, received Vivitrol; 15 Fredrick's last drink Taking Librium at night which helps with overall anxiety Will continue Librium for now,; look forward towards ways to decrease medication needs given side effects Assessment & Plan (09/03/2022 2:27 PM [employer] ELASTIC ATTACHER): Generally improving, 2 episodes of drinking since last visit; only 1 was large binge Doing well with current medication, improves cravings, as well as decreases modify alcohol during binges Continue Vivitrol injection monthly Assessment & Plan (06/29/2022 10:50 PM [employer] ELASTIC ATTACHER): Started on CIWA protocol with Librium. Continue folate and thiamine supplementation Replete electrolytes as needed. Seizure precautions. Fall precautions. Regular diet. Symptomatic treatment for withdrawal symptoms. Supportive care. Warm hand of team following. Anemia 06/29/2022 Assessment & Plan (06/29/2022 10:49 PM [employer] ELASTIC ATTACHER): Suspect secondary to alcohol abuse. 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 Monitor. Bleeding precautions. Finger [...] on file Sexual Orientation Not on file Last Filed Vital Signs Vital Sign Reading Time Taken Comments Blood Pressure 103/64 08/29/2022 11:36 AM [employer] Pulse 77 08/29/2022 11:36 AM [employer] ATT[employer] Temperature 36.5 C (97.7 F) 08/29/2022 11:36 AM [employer] Respiratory Rate 16 08/29/2022 11:36 AM [employer] Oxygen Saturation 99% 08/29/2022 11:36 AM [employer] Inhaled Oxygen Concentration - - Weight 85.3 kg (188 lb) 08/29/2022 11:36 AM [employer] ATT[employer] Height 182.9 cm (6') 08/29/2022 11:36 AM [employer] Body Mass Index 25.5 08/29/2022 11:36 AM [employer] Plan of Treatment Not on file Insurance [facility] Advance Directives For more information, please contact: [phone] * Full Code (Latest Code Status on File) Date Activated Date Inactivated Comments 06/29/2022 2:07 PM 07/02/2022 2:08 PM Care Teams Clinical Technician Relationship Specialty Start Date End Date Referral, Self PCP - General 05/01/21 Gold Winston MD Consulting Physician Family Medicine 07/01/22
--- NOTE | 2024-09-22 10:05 | ED_ITS ---
HPI - Nausea/Vomiting/Diarrhea General Chief complaint: Nausea/Vomiting/Diarrhea <Kim Meade PA-C - Last Filed: 09/22/24 14:42> Stated complaint: vomiting <Kim Meade PA-C - Last Filed: 09/22/24 14:42> Time Seen by Provider: 09/22/24 10:05 <Kim Meade PA-C - Last Filed: 09/22/24 14:42> Focused HPI: This is a 44 year old male that presents to the ER for dehydration. Reports he has been sick with vomiting and diarrhea. Reports he was feeling mostly better, but feels like he still isn't hydrated enough. He is continuing to have nausea with eating/drinking. Reports he was concerned he may be bleeding as his vomit was very dark. He is not on anticoagulation GENERAL: Well-appearing, well-nourished, and in no acute distress. HEAD: Normocephalic, atraumatic. CHEST: Clear to auscultation. ?No respiratory distress. HEART: Regular rate and rhythm.? NEURO: ?Alert and oriented x3. Patient screened in triage and initial orders placed.? ?Additional care and disposition to be based upon?diagnostic testing and treatment. <Kim Meade PA-C - Last Filed: 09/22/24 14:42> History of Present Illness HPI Narrative: Agree with HPI. Reports drinking is hard liquor heavily recently. Feels dehydrated and feels improved compared yesterday. Reports mild dizziness with standing P <Luigi Merino MD - Last Filed: 09/22/24 13:10> Related Data Allergies/Adverse reactions: Allergies Allergy/AdvReac Type Severity Reaction Status Date / Time No Known Allergies Allergy Verified 09/22/24 06:24 <Kim Meade PA-C - Last Filed: 09/22/24 14:42> Review of Systems 2 Review of Systems: All systems reviewed & are unremarkable except as noted in HPI and below <Luigi Merino MD - Last Filed: 09/22/24 13:10> Constitutional: Constitutional: Reports no additional constitutional complaints <Luigi Merino MD - Last Filed: 09/22/24 13:10> Cardiovascular: Cardiovascular: Reports no additional cardiovascular complaints <Luigi Merino MD - Last Filed: 09/22/24 13:10> Respiratory: Respiratory: Reports no additional respiratory complaints < Luigi Merino MD - Last Filed: 09/22/24 13:10> Gastrointestinal: Gastrointestinal: Reports no additional gastrointestinal complaints <Luigi Merino MD - Last Filed: 09/22/24 13:10> Neurologic: Reports system reviewed and no additional complaints, except as documented <Luigi Merino MD - Last Filed: 09/22/24 13:10> PMFSH Past Medical History Medical History: Medical History (Updated 09/22/24 @ 13:09 by Luigi Merino MD) Healthy adult male <Kim Meade PA-C - Last Filed: 09/22/24 14:42> Surgical History Surgical History: Surgical History (Updated 09/22/24 @ 13:06 by Luigi Merino MD) No pertinent past surgical history <Kim Meade PA-C - Last Filed: 09/22/24 14:42> Exam 2 Narrative: GENERAL: Well-appearing, well-nourished, and in no acute distress. HEAD: Normocephalic, atraumatic. ENT: Mucous membranes moist. CHEST: Clear to auscultation. No respiratory distress. HEART: Regular rate and rhythm. Normal peripheral pulses. ABDOMEN: Soft, nontender, nondistended. EXTREMITIES: Normal range of motion. No edema. SKIN: Warm, dry, no rash. NEURO: Alert and oriented x3. PSYCH: Normal mood and affect. <Luigi Merino MD - Last Filed: 09/22/24 13:10> Course Course Emergency Course: Patient resting comfortably. Feels better with IV fluid. Discussed elevated transaminases likely related to alcohol abuse. Patient informed about fatty liver. Discussed alcohol cessation. Discharge home. <Luigi Merino MD - Last Filed: 09/22/24 13:10> Vital Signs Vital signs: Vital Signs Temperature 98.2 F 09/22/24 06:20 Pulse Rate 113 H 09/22/24 06:20 Respiratory Rate 17 09/22/24 06:20 Blood Pressure 151/94 H 09/22/24 06:20 Pulse Oximetry 100 09/22/24 06:20 Oxygen Delivery Room Air 09/22/24 06:20 Temperature 98.4 F 09/22/24 07:49 Pulse Rate 104 H 09/22/24 12:57 Respiratory Rate 15 09/22/24 12:52 Blood Pressure 144/79 H 09/22/24 12:57 Pulse Oximetry 97 09/22/24 12:52 Oxygen Delivery Room Air 09/22/24 06:20 <Kim Meade PA-C - Last Filed: 09/22/24 14:42> Vital Signs Temperature 98.2 F 09/22/24 06:20 Pulse Rate 113 H 09/22/24 06:20 Respiratory Rate 17 09/22/24 06:20 Blood Pressure 151/94 H 09/22/24 06:20 Pulse Oximetry 100 09/22/24 06:20 Oxygen Delivery Room Air 09/22/24 06:20 Temperature 98.4 F 09/22/24 07:49 Pulse Rate 104 H 09/22/24 12:57 Respiratory Rate 15 09/22/24 12:52 Blood Pressure 144/79 H 09/22/24 12:57 Pulse Oximetry 97 09/22/24 12:52 Oxygen Delivery Room Air 09/22/24 06:20 <Luigi Merino MD - Last Filed: 09/22/24 13:10> MDM - Nausea/Vomiting/Diarrhea Lab Data Result diagrams: 09/22/24 10:23 09/22/24 10:23 <Kim Meade PA-C - Last Filed: 09/22/24 14:42> Labs: Lab Results 09/22/24 09/22/24 Range/Units 10:23 11:57 WBC 6.4 (4.5-10.0) K/mm3 RBC 4.77 (4.6-6.20) M/mm3 Hgb 15.5 (14.0-18.0) g/dL Hct 44.6 (42.0-52.0) % MCV 93.5 (80-100) fl MCH 32.5 (26-34) pg MCHC 34.8 (32-36) g/dl RDW 12.0 (11.5-14.5) % Plt Count 192 (150-375) k/mm3 MPV 9.5 (7.4-10.4) fl Immature Gran % (Auto) 0.3 (0-0.5) % Neut % (Auto) 62.0 (45.5-73.1) % Lymph % (Auto) 29.3 (18.3-44.2) % [place] % (Auto) 6.7 (2.6-8.5) % Eos % (Auto) 0.8 (0-4.4) % Baso % (Auto) 0.9 (0.2-1.2) % Lymph # (Auto) 1.89 (0.9-3.2) K/mm3 [place] # (Auto) 0.4 (0.1-0.6) K/mm3 Eos # (Auto) 0.1 (0-0.3) K/mm3 Baso # (Auto) 0.1 (0.0-0.1) K/mm3 Abs Immat Gran (auto) 0.02 (0.00-0.031) K/mm3 Absolute Neuts (auto) 4.0 (1.3-6.7) K/mm3 Absolute Nucleated RBC 0.000 (0.0-0.012) K/mm3 Nucleated RBC % 0.0 (0.0-0.2) % PT 12.6 (11.1-14.7) Seconds INR 0.9 APTT 36.2 (22.3-36.8) Seconds Sodium 136 L (137-145) mmol/L Potassium 3.7 (3.4-5.0) mmol/L Chloride 95 L (98-107) mmol/L Carbon Dioxide 25 (22-30) mmol/L Anion Gap 16 H (4-12) mmol/L BUN 14 (9-20) mg/dL Creatinine 0.79 (0.7-1.3) mg/dL Estim Creat Clear Calc 114 ml/min Estimated GFR > 60 (59 - ) Glucose 109 (65-110) mg/dL Calcium 9.6 (8.4-10.2) mg/dL Total Bilirubin 1.0 (0.2-1.3) mg/dL AST 219 H (17-59) U/L ALT 145 H (6-50) U/L Alkaline Phosphatase 150 H (38-126) U/L Total Protein 9.0 H (6.3-8.2) g/dL Albumin 4.9 (3.5-5.1) g/dL Lipase 367 H (23-300) U/L Urine Color Dark yellow (Yellow) Urine Appearance Clear (Clear) Urine pH 6.5 (5.0-9.0) Ur Specific [place] 1.012 (1.001-1.035) Urine Protein Trace (Negative) mg/dL Urine Glucose (UA) Negative (Negative) mg/dL Urine Ketones 1+ H (Negative) mg/dL Ur Blood (Man) Negative (Negative) Urine Nitrate Negative (Negative) Urine Bilirubin Negative (Negative) Urine Urobilinogen 1.0 (<2.0) mg/dL Leukocyte Esterase Rfl Negative (Negative) MATHEUS/UL Urine RBC 0-2 (0-2) /hpf Urine WBC 0-5 (0-3) /hpf Ur Squamous Epith Cells None seen (Few) /hpf Urine Bacteria None seen /hpf Urine Casts 0-2 <Kim Meade PA-C - Last Filed: 09/22/24 14:42> Lab Results 09/22/24 09/22/24 Range/Units 10:23 11:57 WBC 6.4 (4.5-10.0) K/mm3 RBC 4.77 (4.6-6.20) M/mm3 Hgb 15.5 (14.0-18.0) g/dL Hct 44.6 (42.0-52.0) % MCV 93.5 (80-100) fl MCH 32.5 (26-34) pg MCHC 34.8 (32-36) g/dl RDW 12.0 (11.5-14.5) % Plt Count 192 (150-375) k/mm3 MPV 9.5 (7.4-10.4) fl Immature Gran % (Auto) 0.3 (0-0.5) % Neut % (Auto) 62.0 (45.5-73.1) % Lymph % (Auto) 29.3 (18.3-44.2) % [place] % (Auto) 6.7 (2.6-8.5) % Eos % (Auto) 0.8 (0-4.4) % Baso % (Auto) 0.9 (0.2-1.2) % Lymph # (Auto) 1.89 (0.9-3.2) K/mm3 [place] # (Auto) 0.4 (0.1-0.6) K/mm3 Eos # (Auto) 0.1 (0-0.3) K/mm3 Baso # (Auto) 0.1 (0.0-0.1) K/mm3 Abs Immat Gran (auto) 0.02 (0.00-0.031) K/mm3 Absolute Neuts (auto) 4.0 (1.3-6.7) K/mm3 Absolute Nucleated RBC 0.000 (0.0-0.012) K/mm3 Nucleated RBC % 0.0 (0.0-0.2) % PT 12.6 (11.1-14.7) Seconds INR 0.9 APTT 36.2 (22.3-36.8) Seconds Sodium 136 L (137-145) mmol/L Potassium 3.7 (3.4-5.0) mmol/L Chloride 95 L (98-107) mmol/L Carbon Dioxide 25 (22-30) mmol/L Anion Gap 16 H (4-12) mmol/L BUN 14 (9-20) mg/dL Creatinine 0.79 (0.7-1.3) mg/dL Estim Creat Clear Calc 114 ml/min Estimated GFR > 60 (59 - ) Glucose 109 (65-110) mg/dL Calcium 9.6 (8.4-10.2) mg/dL Total Bilirubin 1.0 (0.2-1.3) mg/dL AST 219 H (17-59) U/L ALT 145 H (6-50) U/L Alkaline Phosphatase 150 H (38-126) U/L Total Protein 9.0 H (6.3-8.2) g/dL Albumin 4.9 (3.5-5.1) g/dL Lipase 367 H (23-300) U/L Urine Color Dark yellow (Yellow) Urine Appearance Clear (Clear) Urine pH 6.5 (5.0-9.0) Ur Specific [place] 1.012 (1.001-1.035) Urine Protein Trace (Negative) mg/dL Urine Glucose (UA) Negative (Negative) mg/dL Urine Ketones 1+ H (Negative) mg/dL Ur Blood (Man) Negative (Negative) Urine Nitrate Negative (Negative) Urine Bilirubin Negative (Negative) Urine Urobilinogen 1.0 (<2.0) mg/dL Leukocyte Esterase Rfl Negative (Negative) MATHEUS/UL Urine RBC 0-2 (0-2) /hpf Urine WBC 0-5 (0-3) /hpf Ur Squamous Epith Cells None seen (Few) /hpf Urine Bacteria None seen /hpf Urine Casts 0-2 <Luigi Merino MD - Last Filed: 09/22/24 13:10> Imaging Data Radiologist's impression: ITS Impressions Upper Quadrant Ultrasound 09/22/24 11:27 IMPRESSION: 1. Diffuse hepatic steatosis. Otherwise unremarkable right upper quadrant ultrasound. <Luigi Merino MD - Last Filed: 09/22/24 13:10> Critical Care Time Critical Care Time Critical Care Time: No <Kim Meade PA-C - Last Filed: 09/22/24 14:42> Discharge Plan Discharge Clinical Impression: Hepatic steatosis <Kim Meade PA-C - Last Filed: 09/22/24 14:42> Patient Disposition: Home, Self-Care <Kim Meade PA-C - Last Filed: 09/22/24 14:42> Condition: Stable <Kim Meade PA-C - Last Filed: 09/22/24 14:42> Instructions: Acute Nausea and Vomiting (ED) <Kim Meade PA-C - Last Filed: 09/22/24 14:42> Additional Instructions: Return to the emergency department if you develop severe abdominal pain, severe nausea and vomiting to the point where you are unable to keep down fluids, if you develop chest pain or difficulty breathing, blood in your stool, dizziness or fainting, or if you develop any other new or concerning symptoms as these could be signs of more serious medical illness. Try to stay well hydrated. <Kim Meade PA-C - Last Filed: 09/22/24 14:42> Patient Language: Macedonian <Kim Meade PA-C - Last Filed: 09/22/24 14:42> Prescriptions: New ondansetron 4 mg tablet,disintegrating 4 mg PO Q6H PRN (Reason: nausea and vomiting) Qty: 10 0RF omeprazole 20 mg capsule,delayed release(DR/EC) 20 mg PO DAILY Qty: 30 0RF No Action ondansetron 4 mg tablet,disintegrating 4 mg PO Q6H PRN (Reason: nausea and vomiting) 5 Days Qty: 20 0RF <Kim Meade PA-C - Last Filed: 09/22/24 14:42> Follow-up/Referrals: UNKNOWN,DOCTOR [Primary Care Provider] - 1 Week <Kim Meade PA-C - Last Filed: 09/22/24 14:42> Stand Alone Forms: Work/School Release IP <Kim Meade PA-C - Last Filed: 09/22/24 14:42>
[2024-09-22] MEDS: SODIUM CHLORIDE 0.9% IV 1,000 ML 999 ML IV CONT (10:21)
[2024-09-22] MEDS: PANTOPRAZOLE SODIUM IV 40 MG VIAL IV PUSH (10:21)
[2024-09-22] MEDS: ONDANSETRON INJ 4 MG/2 ML VIAL IV PUSH (10:21)
[2024-09-22 10:33] LABS: Basophils Absolute Auto 0.1 K/mm3 (0.0-0.1); Basophils Percent Auto 0.9 % (0.2-1.2); Eosinophils Absolute Auto 0.1 K/mm3 (0-0.3); Eosinophils Percent Auto 0.8 % (0-4.4); Hematocrit 44.6 % (42.0-52.0); Hemoglobin 15.5 g/dL (14.0-18.0); Immature Granulocyte Absolute 0.02 K/mm3 (0.00-0.031); Immature Granulocyte Percent A 0.3 % (0-0.5); Lymphocytes Absolute Auto 1.89 K/mm3 (0.9-3.2); Lymphocytes Percent Auto 29.3 % (18.3-44.2); Mean Corpuscular HGB Conc 34.8 g/dl (32-36); Mean Corpuscular Hemoglobin 32.5 pg (26-34); Mean Corpuscular Volume 93.5 fl (80-100); Mean Platelet Volume 9.5 fl (7.4-10.4); Monocytes Absolute Auto 0.4 K/mm3 (0.1-0.6); Monocytes Percent Auto 6.7 % (2.6-8.5); Platelet Count Result 192 k/mm3 (150-375); Red Blood Count 4.77 M/mm3 (4.6-6.20); White Blood Count 6.4 K/mm3 (4.5-10.0)
[2024-09-22 10:43] LABS: Alanine Aminotransferase 145 U/L (6-50); Albumin Level 4.9 g/dL (3.5-5.1); Alkaline Phosphatase 150 U/L (38-126); Anion Gap 16 mmol/L (4-12); Aspartate Amino Transferase 219 U/L (17-59); Blood Urea Nitrogen 14 mg/dL (9-20); Calcium 9.6 mg/dL (8.4-10.2); Carbon Dioxide 25 mmol/L (22-30); Chloride 95 mmol/L (98-107); Estimated CRCL calculation 114 ml/min; Estimated Glomerular Filt Rate > 60; Glucose 109 mg/dL (65-110); Lipase 367 U/L (23-300); Potassium 3.7 mmol/L (3.4-5.0); Sodium 136 mmol/L (137-145)
[2024-09-22 10:44] LABS: INR 0.9; Prothrombin Time 12.6 Seconds (11.1-14.7)
[2024-09-22 10:45] LABS: Partial Thromboplastin Time 36.2 Seconds (22.3-36.8)
[2024-09-22 12:09] LABS: Add Urine Microscopic? YES; Appearance Urine Clear (Clear); Bacteria Urine None Seen /hpf; Bilirubin Urine Negative (Negative); Blood Urine Negative (Negative); Color Urine Dark Yellow (Yellow); Glucose Urine UA Negative (Negative); Ketones Urine 1+ mg/dL (Negative); Leukocyte Esterase Ur Negative LEU/UL (Negative); Nitrate Urine Negative (Negative); Non Pathogenic Casts 0-2; Protein Urine Trace mg/dL (Negative); RBC Urine 0-2 /hpf (0-2); Specific Grav Ur 1.012 (1.001-1.035); Squamous Epithelial Cell Urine None Seen /hpf (Few); WBC Urine 0-5 /hpf (0-3); pH Urine 6.5 (5.0-9.0)
--- OUTSIDE RECORDS SUMMARY | 2024-09-22 12:28 | XMS_ITS | Clinical Summary ---
Author Organization [facility] Address [address] [place] [address] Care Team Providers Care Snowboard Designer Name Role Phone Kenneth Lr Primary Care Provider [phone] Source Comments [facility],non-owned Affiliates and Associated Physician Practices is amultiple site organization consisting of ambulatory clinics and hospital sitesin [place], [place], [place] and [place]. This disclosure is being madepursuant to the Care Everywhere program and may not contain all information available regarding this patient. Last updated 18.[facility] Allergies No known active allergies Medications * [...] 10:51 PM 10/19/2023 4:25 PM Care Teams Snowboard Designer Relationship Specialty Start Date End Date Kenneth Lr DO [address] [place] [id number] PCP - General Emergency Medicine 12/04/22
--- OUTSIDE RECORDS SUMMARY | 2024-09-22 12:28 | XMS_ITS | Clinical Summary ---
Author Organization [facility] Address [address] [place] [address] Care Team Providers Care Stab Setter And Driller Name Role Phone Referral, Self Primary Care Provider Gold John MD Unavailable [phone] Allergies No known active allergies Medications buPROPion [...] 09/23/2022 Assessment & Plan (09/23/2022 4:23 PM [employer]): Stable, not well controlled; diagnosed in childhood, but never treated Will continue to monitor and discuss medical treatments available as patient becomes more stable Start bupropion 150 mg daily PTSD (post-traumatic stress disorder) 09/03/2022 Assessment & Plan (09/23/2022 4:22 PM [employer]): Continues to have significant anxiety; will continue to monitor closely, continue Librium p.r.n.; adjust to other medication has available Assessment & Plan (09/03/2022 2:27 PM [employer]): Continue bupropion 150 mg daily Will start amitriptyline 25 mg nightly to help with insomnia Alcohol withdrawal syndrome with complication Assessment & Plan (09/23/2022 4:22 PM [employer]): Stable, well controlled; improving, completed medical stabilization, received Vivitrol; 15 Fredrick's last drink Taking Librium at night which helps with overall anxiety Will continue Librium for now,; look forward towards ways to decrease medication needs given side effects Assessment & Plan (09/03/2022 2:27 PM [employer]): Generally improving, 2 episodes of drinking since last visit; only 1 was large binge Doing well with current medication, improves cravings, as well as decreases modify alcohol during binges Continue Vivitrol injection monthly Assessment & Plan (06/29/2022 10:50 PM [employer]): Started on CIWA protocol with Librium. Continue folate and thiamine supplementation Replete electrolytes as needed. Seizure precautions. Fall precautions. Regular diet. Symptomatic treatment for withdrawal symptoms. Supportive care. Warm hand of team following. Anemia 06/29/2022 Assessment & Plan (06/29/2022 10:49 PM [employer]): Suspect secondary to alcohol abuse. Will check iron studies, B12 folate levels Thrombocytopenia 06/29/2022 Assessment & Plan (06/29/2022 10:51 PM [employer]): Suspect alcohol-induced thrombocytopenia. Monitor. Bleeding precautions. Finger [...] Comments Blood Pressure 103/64 08/29/2022 11:36 AM [employer] Pulse 77 08/29/2022 11:36 AM [employer] Temperature 36.5 C (97.7 F) 08/29/2022 11:36 AM [employer] Respiratory Rate 16 08/29/2022 11:36 AM [employer] Oxygen Saturation 99% 08/29/2022 11:36 AM [employer] Inhaled Oxygen Concentration - - Weight 85.3 kg (188 lb) 08/29/2022 11:36 AM [employer] Height 182.9 cm (6') 08/29/2022 11:36 AM [employer] Body Mass Index 25.5 08/29/2022 11:36 AM [employer] Plan of Treatment Health Maintenance Due Date [...] patient's age to complete this topic Insurance [facility] Advance Directives For more information, please contact: [phone] * Full Code (Latest Code Status on File) Date Activated Date Inactivated Comments 06/29/2022 2:07 PM 07/02/2022 2:08 PM Care Teams Stab Setter And Driller Relationship Specialty Start Date End Date Referral, Self PCP - General 05/01/21 Gold Winston MD Consulting Physician Family Medicine 07/01/22
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
--- OUTSIDE RECORDS SUMMARY | 2024-09-22 12:28 | XMS_ITS | Referral Summary ---
Author Organization [facility] [place] Address [address] [place] [address] Care Team Providers Care Still Cleaner Tube Name Role Phone Referral, Self Primary Care Provider Gold John MD Unavailable [phone] Allergies No known active allergies Medications buPROPion [...] 09/23/2022 Assessment & Plan (09/23/2022 4:23 PM AGRICULTURAL EDUCATION INSTRUCTOR): Stable, not well controlled; diagnosed in childhood, but never treated Will continue to monitor and discuss medical treatments available as patient becomes more stable Start bupropion 150 mg daily PTSD (post-traumatic stress disorder) 09/03/2022 Assessment & Plan (09/23/2022 4:22 PM AGRICULTURAL EDUCATION INSTRUCTOR): Continues to have significant anxiety; will continue to monitor closely, continue Librium p.r.n.; adjust to other medication has available Assessment & Plan (09/03/2022 2:27 PM AGRICULTURAL EDUCATION INSTRUCTOR): Continue bupropion 150 mg daily Will start amitriptyline 25 mg nightly to help with insomnia Alcohol withdrawal syndrome with complication Assessment & Plan (09/23/2022 4:22 PM AGRICULTURAL EDUCATION INSTRUCTOR): Stable, well controlled; improving, completed medical stabilization, received Vivitrol; 15 Fredrick's last drink Taking Librium at night which helps with overall anxiety Will continue Librium for now,; look forward towards ways to decrease medication needs given side effects Assessment & Plan (09/03/2022 2:27 PM AGRICULTURAL EDUCATION INSTRUCTOR): Generally improving, 2 episodes of drinking since last visit; only 1 was large binge Doing well with current medication, improves cravings, as well as decreases modify alcohol during binges Continue Vivitrol injection monthly Assessment & Plan (06/29/2022 10:50 PM AGRICULTURAL EDUCATION INSTRUCTOR): Started on CIWA protocol with Librium. Continue folate and thiamine supplementation Replete electrolytes as needed. Seizure precautions. Fall precautions. Regular diet. Symptomatic treatment for withdrawal symptoms. Supportive care. Warm hand of team following. Anemia 06/29/2022 Assessment & Plan (06/29/2022 10:49 PM AGRICULTURAL EDUCATION INSTRUCTOR): Suspect secondary to alcohol abuse. 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 Monitor. Bleeding precautions. Finger [...] Comments Blood Pressure 103/64 08/29/2022 11:36 AM AGRICULTURAL EDUCATION INSTRUCTOR Pulse 77 08/29/2022 11:36 AM AGRICULTURAL EDUCATION INSTRUCTOR Temperature 36.5 C (97.7 F) 08/29/2022 11:36 AM AGRICULTURAL EDUCATION INSTRUCTOR Respiratory Rate 16 08/29/2022 11:36 AM AGRICULTURAL EDUCATION INSTRUCTOR Oxygen Saturation 99% 08/29/2022 11:36 AM AGRICULTURAL EDUCATION INSTRUCTOR Inhaled Oxygen Concentration - - Weight 85.3 kg (188 lb) 08/29/2022 11:36 AM AGRICULTURAL EDUCATION INSTRUCTOR Height 182.9 cm (6') 08/29/2022 11:36 AM AGRICULTURAL EDUCATION INSTRUCTOR Body Mass Index 25.5 08/29/2022 11:36 AM AGRICULTURAL EDUCATION INSTRUCTOR Plan of Treatment Not on file Insurance [facility] Advance Directives For more information, please contact: [phone] * Full Code (Latest Code Status on File) Date Activated Date Inactivated Comments 06/29/2022 2:07 PM 07/02/2022 2:08 PM Care Teams Still Cleaner Tube Relationship Specialty Start Date End Date Referral, Self PCP - General 05/01/21 Gold Winston MD Consulting Physician Family Medicine 07/01/22
--- OUTSIDE RECORDS SUMMARY | 2024-09-22 12:28 | XMS_ITS | Referral Summary ---
Author Organization [facility] Address [address] [place] [address] Care Team Providers Care Distance Education Director Name Role Phone Kenneth Lr Primary Care Provider [phone] Source Comments [facility] [employer],non-owned Affiliates and Associated Physician Practices is amultiple site organization consisting of ambulatory clinics and hospital sitesin [place], [place], [place] and [place]. This disclosure is being madepursuant to the Care Everywhere program and may not contain all information available regarding this patient. Last updated 18.[facility] Allergies No known active allergies Medications * [...] 10:51 PM 10/19/2023 4:25 PM Care Teams Distance Education Director Relationship Specialty Start Date End Date Kenneth Lr DO [address] [place] [id number] PCP - General Emergency Medicine 12/04/22
== END 2024-09-22 14:07 | disposition home or self-care (01) ==
PROVIDERS: Physician Assistant; Emergency Provider Emergency Medicine
DX: K76.0 Fatty (change of) liver, not elsewhere classified (principal)
CPT/HCPCS: 36415; 76705; 80053; 81001; 83690; 85025; 85610; 85730; 96361; 96374; 96375; 99284; J2405; J2470; J7030